=== PATIENT | male | born 1950 | race Caucasian/White ===

== ENCOUNTER 2019-05-24 14:57 | Day surgery (SDC) | payer MEDICARE, OTHER ==
[~2019-05-24 14:57] MED LIST: CEFAZOLIN SODIUM 2 GM in DEXTROSE 5%-WATER 100 ML IV PRN; DEXAMETHASONE SOD PHOSPHATE INJ 4 MG/1 ML VIAL ONE; FENTANYL CITRATE INJ/PF 100 MCG/2 ML AMPUL ONE; MIDAZOLAM 2 MG/2 ML INJ ONE; ONDANSETRON HCL INJ/PF 4 MG/2 ML SDV ONE; PROPOFOL INJ 200 MG/20 ML VIAL IV ONE
[2019-05-24] MEDS ORDERED: ALBUTEROL SULFATE 0.083% NEB 2.5 MG/3 ML AMPUL NEB ONE (15:37)
[2019-05-24 15:44] LABS: HEMATOCRIT 44.9 % (37.9-51.0); HEMOGLOBIN 15.7 g/dL (13.5-17.0); MEAN CORPUSCULAR HEMOGLOBIN 31.7 pg (27.0-33.4); MEAN CORPUSCULAR HGB CONC 34.9 g/dL (32.0-36.0); MEAN CORPUSCULAR VOLUME 91 fl (80-97); PLATELET COUNT 208 10^3/uL (150-450); RED BLOOD COUNT 4.94 10^6/uL (4.35-5.55); RED CELL DISTRIBUTION WIDTH 13.5 % (11.5-14.0); WHITE BLOOD COUNT 9.3 10^3/uL (4.0-10.5)
--- NOTE | 2019-05-24 15:53 | RADIOLOGY REPORT (SQ) ---
EXAM DESCRIPTION: CHEST SINGLE VIEW COMPLETED DATE/TIME: 05/24/2019 3:43 pm REASON FOR STUDY: PRE OP COMPARISON: None. EXAM PARAMETERS: NUMBER OF VIEWS: One view. TECHNIQUE: Single frontal radiographic view of the chest acquired. RADIATION DOSE: NA LIMITATIONS: None. FINDINGS: LUNGS AND PLEURA: No opacities, masses or pneumothorax. No pleural effusion. MEDIASTINUM AND HILAR STRUCTURES: No masses. Contour normal. HEART AND VASCULAR STRUCTURES: Heart normal in size. Normal vasculature. BONES: No acute findings. HARDWARE: None in the chest. OTHER: No other significant finding. IMPRESSION: NO ACUTE RADIOGRAPHIC FINDING IN THE CHEST. TECHNICAL DOCUMENTATION: JOB ID: [id number] [employer]- All Rights Reserved Reading location - IP/workstation name: [email or web address]
[2019-05-24 16:06] LABS: ANION GAP 11 (5-19); BLOOD UREA NITROGEN 13 mg/dL (7-20); CALCIUM 9.3 mg/dL (8.4-10.2); CARBON DIOXIDE 19 mmol/L (22-30); CHLORIDE 110 mmol/L (98-107); GLUCOSE 90 mg/dL (75-110); POTASSIUM 4.3 mmol/L (3.6-5.0)
[2019-05-24] MEDS ORDERED: RINGERS SOLUTION,LACTATED 500 ML IV ONE (16:15)
[2019-05-24] MEDS ORDERED: BUPIVACAINE HCL 0.5 % INJ/PF 30 ML SDV ONE (17:10)
[2019-05-24] MEDS ORDERED: LIDOCAINE 1% INJ-PF (10 MG/ML) 30 ML SDV ONE (17:10)
[2019-05-24] MEDS ORDERED: DIPHENHYDRAMINE HCL 50 MG/ML VIAL IV PRN (17:45)
[2019-05-24] MEDS ORDERED: MEPERIDINE HCL/PF INJ 25 MG/1 ML DISP.SYRIN IV PRN (17:45)
[2019-05-24] MEDS ORDERED: MORPHINE SULFATE 10 MG/ML INJ IV PRN ×2 (17:45→19:24)
[2019-05-24] MEDS ORDERED: FENTANYL CITRATE INJ/PF 100 MCG/2 ML AMPUL IV PRN ×2 (17:45)
[2019-05-24] MEDS ORDERED: OXYCODONE-ACETAMINOPHEN 5-325 MG TABLET PO PRN ×3 (17:45→19:24)
[2019-05-24] MEDS ORDERED: PROMETHAZINE HCL INJ 25 MG/1 ML VIAL IV PRN ×2 (17:45)
--- NOTE | 2019-05-24 18:34 | EKG REPORT ---
SEVERITY:- ABNORMAL ECG - SINUS RHYTHM MULTIPLE VENTRICULAR PREMATURE COMPLEXES BORDERLINE R WAVE PROGRESSION, ANTERIOR LEADS : Confirmed by: Erasto Lopez 24-May-2019 18:33:21
--- NOTE | 2019-05-24 19:03 | RADIOLOGY REPORT (SQ) ---
EXAM DESCRIPTION: NO CHG FLUORO; FINGER LEFT COMPLETED DATE/TIME: 05/24/2019 6:16 pm REASON FOR STUDY: PERC PINNING 3RD DIGIT COMPARISON: None. FLUOROSCOPY TIME: 21 seconds 4 Images saved to PACS LIMITATIONS: None. PROCEDURE: Percutaneous pinning of the 3rd digit FINDINGS: Images from fluoro document placement of pin longitudinally in the 3rd digit into the base of the middle phalanx. IMPRESSION: Percutaneous pinning. Refer to operative note for further information. COMMENT: PQRS 6045F: Fluoroscopy time of the procedure is documented in the report. TECHNICAL DOCUMENTATION: JOB ID: [id number] [employer]- All Rights Reserved Reading location - IP/workstation name: [email or web address]
--- NOTE | 2019-05-24 19:03 | RADIOLOGY REPORT (SQ) ---
EXAM DESCRIPTION: NO CHG FLUORO; FINGER LEFT COMPLETED DATE/TIME: 05/24/2019 6:16 pm REASON FOR STUDY: PERC PINNING 3RD DIGIT COMPARISON: None. FLUOROSCOPY TIME: 21 seconds 4 Images saved to PACS LIMITATIONS: None. PROCEDURE: Percutaneous pinning of the 3rd digit FINDINGS: Images from fluoro document placement of pin longitudinally in the 3rd digit into the base of the middle phalanx. IMPRESSION: Percutaneous pinning. Refer to operative note for further information. COMMENT: PQRS 6045F: Fluoroscopy time of the procedure is documented in the report. TECHNICAL DOCUMENTATION: JOB ID: [id number] [employer]- All Rights Reserved Reading location - IP/workstation name: [email or web address]
[2019-05-24] MEDS ORDERED: ONDANSETRON HCL INJ/PF 4 MG/2 ML SDV IV PRN (19:24)
--- NOTE | 2019-05-24 19:35 | Operative Report ---
Operative Report DATE OF SURGERY: 05/24/19 PREOPERATIVE DIAGNOSIS: 1. Open fracture subluxation left ring DIP joint with e xtensor insufficiency. 2. Laceration left thumb POSTOPERATIVE DIAGNOSIS: 1. Open Fracture Subluxation left Ring Finger DIP Joint. 2. FPL tendon laceration left thumb zone II. 3. Radial digital nerve laceration left thumb. 4. Radial condyle fracture proximal phalanx left thumb OPERATION: 1. Irrigation and debridement open Fracture Subluxation left Ring Finger DIP Joint with transarticular pinning. 2. Repair FPL tendon laceration left thumb zone II. 3. Repair radial digital nerve laceration left thumb. 4. Irrigation and debridement radial condyle fracture proximal phalanx left thumb SURGEON: DELANO SMITH ANESTHESIA: GA COMPLICATIONS: None ESTIMATED BLOOD LOSS: Minimal PROCEDURE: Indication for above procedure: Pleasant 69-year-old male who sustained a self-inflicted tablesaw injury to his left hand involving the thumb and ring finger. Patient had extension lag of the ring finger at the DIP joint and inability to flex his thumb. Upon follow-up the office we discussed treatment options and decision was made to proceed with operative intervention. Postop outcomes and expectations were explained patient verbalized understanding consented for surgical procedure. Procedure In Detail: Patient was seen and evaluated in the preoperative holding area. The LEFT upper extremity was initialized and marked. Patient received 2g of Ancef IV for bacterial prophylaxis. Patient was taken back to the operative room where transferred to the operative table and placed under general anesthesia. Once they were adequately anesthetized a nonsterile tourniquet was placed on the upper extremity. A surgical team debriefing was performed ensuring all instrumentation was available, the surgical procedure was discussed with possible concerns reviewed. The upper extremity was prepped with Betadine and draped in a sterile fashion. A timeout was done identifying correct patient, procedure and extremity everyone in attendance agree with this and verbalized no concerns. The extremity was exsanguinated the tourniquet was inflated to 250 mmHg. Ring finger DIP joint was irrigated and debrided. There was a longitudinal split within the nail plate but normal skin turgor. Defect noted along the d orsal aspect of the middle phalanx with overlying soft tissue. Transarticular K wire was placed across the DIP joint maintaining extension to correct patient's extension lag. The 0.045 K wire was then cut below the skin. C-arm fluoroscopy was obtained confirming appropriate placement. Attention then turned to thumb laceration. Skin sutures were removed and blunt dissection was performed confirming laceration of the FPL tendon within zone II there is also involvement of the radial neurovascular bundle ulnar neurovascular bundle remained intact. There was bone loss along the radial condyle. This area was irrigated. Any nonviable skin was excised as well. Skin incision was extended proximally to the level of the thenar eminence to retrieve the retracted FPL tendon. The FPL was then fed through the A1 marti and portion of the oblique marti and secured with a 22- gauge needle. Tendon edges were debrided a epitendinous running 5-0 Prolene suture was placed along the dorsal wall. Tendon was repaired with a 8 strand cruciate repair utilizing 4-0 fiber loop suture. There was no tendon gapping with passive extension of the digit. No evidence of impingement within the oblique marti. The radial digital nerve was then debrided proximally and distally distally with a 9-0 suture epineural repair was performed to the radial digital nerve just proximal to the level of the trifurcation. Tensionless repair was achieved there is no evidence of disruption of the repair with IP joint extension to neutral. Additional epineural suture was placed. The repair was then reinforced with Tisseel fibrin glue. A 4 mm x 10 mm Axogen nerve protector was placed the excess edges debrided. This was secured with interrupted 8-0 nylon suture. Wound was copiously irrigated with Betadine and then normal saline. Skin edges were once again inspected any nonviable skin excised. Given the large flap volarly I was able to advance viable skin distally to the level of the DIP joint after excision of the necrotic skin is notably along the distal aspect. Wound was closed with interrupted 4-0 nylon suture. Tourniquet was deflated. Any peripheral bleeding was controlled with bipolar cautery. Patient had normal skin turgor and capillary refill throughout all digits. A wrist block was performed with 30 cc of 0.5% bupivacaine. Wound was dressed with loosely applied Xeroform 4 x 4's and a soft roll. A thumb spica fiberglass splint was placed maintaining wrist at neutral position MP joint at 25 degrees of flexion IP joint at neutral. Sponge counts, instrument counts, needle counts were correct. Patient was then awoken from anesthesia. Transferred from the operating room table to the operating room stretcher. There was no intraoperative complications patient tolerated procedure well stable to PACU. Postop plan: Patient follow in the office in 2 weeks for wound check. We will start the patient on occupational therapy 5-7 days postoperatively as per Arab's prot ocol for FPL and radial digital nerve repair protocol. We will proceed with transarticular K wire removal at 6 weeks.
--- NOTE | 2019-05-24 19:35 | Discharge Summary ---
Discharge Summary (SDC) - Discharge Final Diagnosis: Left ring finger fracture with extensor tendon insufficiency Left thumb FPL laceration Date of Surgery: 05/24/19 Discharge Date: 05/24/19 Condition: Good Treatment or Instructions: Schedule Follow Up w/ Dr. Johnie Clark @ [facility] to be seen in 10-14 days or as scheduled Girdler: [place]: [place]: Ice and elevate Keep splint clean/dry/intact, do not remove. If your fingers become numb please unwrap the Jonatan wrap but leave the splint in place, if the sensation does not return within 30 minutes please return to the emergency department. Please use ibuprofen (Motrin or Advil) 600-800 mg every 8 hours as needed for pain or fever DO NOT TAKE w/ TORADOL may use once TORADOL complete. You may also use acetaminophen (Tylenol) 1000 mg every 4-6 hours as needed for pain or fever. Please be aware that many medications contain acetaminophen, do not exceed a total of 1000 mg of acetaminophen every 6 hours. If ibuprofen and acetaminophen are not sufficient for your pain you may take the Percocet/[place]. Please be aware that the Percocet/[place] does contain Tylenol. Stool softener of choice when on pain medication. USE OF [id number] IBUPROFEN: Ibuprofen (Advil, Nuprin, Medipren, Motrin IB) is a medication for fever and pain control. In addition, it has anti- inflammatory effects which may be beneficial, especially in the treatment of injuries. It's best to take ibuprofen with food. Persons with ulcer disease or allergy to aspirin should notify their physician of this before taking ibuprofen. Ibuprofen can be given every four to six hours, for a total of four doses daily. Age Pain or fever dose Antiinflammatory dose 6-8 yr 200 mg (1 tab) 200 mg (1 tab) 9-11 yr 200 mg (1 tab) 200-400 mg (1-2 tab) 11-14 yr 200-400 mg (1-2 tab) 400 mg (2 tab) 15-adult 400 mg (2 tab) 600 mg (3 tab) ORAL NARCOTIC MEDICATION: You have been given a prescription for pain control. This medication is a narcotic. It's best taken with food, as nausea can result if taken on an empty stomach. Don't operate machinery or drive within six hours of taking this medication. Do not combine this medicine with alcohol, or with any medication which can cause sedation (such as cold tablets or sleeping pills) unless you get permission from the physician. Narcotics tend to cause constipation. If possible, drink plenty of fluids and eat a diet high in fiber and fruits. Please be aware that prescription narcotics also have the potential for abuse. People become addicted to these medications because of the general sense of wellbeing that they induce. This feeling along with a significant reduction in tension, anxiety, and aggression provides a stimulating seductive quality to these drugs. Once your pain is under control, we encourage you to discard your unused narcotics. Prescriptions: Oxycodone HCl/Acetaminophen [Percocet 5-325 mg Tablet] 1 tab PO Q6 PRN #25 tab PRN Reason: Referrals: DAVID URENA MD [Primary Care Provider] - Discharge Diet: As Tolerated Respiratory Treatments at Home: Deep Breathing/Coughing, Incentive Spirometer Discharge Activity: No Driving, No Lifting Over 10 Pounds, No Lifting/Push/Pulling Report the Following to Your Physician Immediately: Fever over 101 Degrees, Unusual Bleeding, Redness, Swelling, Warmth, Increased Soreness
[2019-05-24] MEDS ORDERED: FENTANYL CITRATE INJ/PF 100 MCG/2 ML AMPUL ONE (19:39)
[2019-05-24] MEDS: FENTANYL CITRATE INJ/PF 100 MCG/2 ML AMPUL IV PRN ×3 (19:45→19:55)
[2019-05-24] MEDS ORDERED: OXYCODONE-ACETAMINOPHEN 5-325 MG TABLET ONE (19:58)
[2019-05-24 21:21] VITALS: BP 133/75
== END 2019-05-24 21:00 | disposition home or self-care (01) ==
LOC: OROUT 14:57
PROVIDERS: ATTEND Orthopaedic Surgery
DX: S64.32XA Injury of digital nerve of left thumb, initial encounter (principal); S66.022A Laceration of long flexor muscle, fascia and tendon of left thumb at wrist and hand level, initial encounter; S61.012A Laceration without foreign body of left thumb without damage to nail, initial encounter; S61.213A Laceration without foreign body of left middle finger without damage to nail, initial encounter; S61.215A Laceration without foreign body of left ring finger without damage to nail, initial encounter; S63.235A Subluxation of proximal interphalangeal joint of left ring finger, initial encounter; W31.2XXA Contact with powered woodworking and forming machines, initial encounter; Y93.9 Activity, unspecified; Z79.01 Long term (current) use of anticoagulants; I10 Essential (primary) hypertension; F17.210 Nicotine dependence, cigarettes, uncomplicated; K21.9 Gastro-esophageal reflux disease without esophagitis
CPT/HCPCS: 36415; 85027; 80048; 71045; 73140; 93005; 93010; 01820; 26356; 26746; 64831; C9250; C1713; J2250; J3490 ×2; J0690; J1100; J3010; A9270 ×2; J2405; J7060; J2704